=== PATIENT | male | born 1980 | race Caucasian/White ===

== ENCOUNTER 2017-07-24 15:44 | Emergency (ER) | payer BC ==
[~2017-07-24 15:44] MED LIST: IBUP600 PO; LEVE750T8 PO; METH750T2 PO
[2017-07-24 15:53] VITALS: BP 132/82; PULSE 115; RESP 18; TEMP 99.2; O2SAT 98
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
[2017-07-24] MEDS ORDERED: LIDOCAINE 1%/EPINEPHrine 1:100,000 SOLN 20 ML VIAL INFIL ONE (16:15)
[2017-07-24] MEDS ORDERED: CEPH-460 PO (16:41)
[2017-07-24] MEDS ORDERED: BACT800T5 PO (16:41)
[2017-07-24] MEDS ORDERED: CEPHALEXIN MONOHYDRATE 500 MG CAP PO ONE (16:45)
[2017-07-24] MEDS ORDERED: SULFAMETHOXAZOLE-TRIMETHOPRIM DS 800-160 MG TAB PO ONE (16:45)
== END 2017-07-24 17:04 | disposition home or self-care (01) ==
LOC: NEPK 15:44
DX: L02.413 Cutaneous abscess of right upper limb (principal); B95.61 Methicillin susceptible Staphylococcus aureus infection as the cause of diseases classified elsewhere; F17.200 Nicotine dependence, unspecified, uncomplicated
CPT/HCPCS: 10060; 86403; 87070; 87186; 87205

== ENCOUNTER 2017-07-26 20:04 | Emergency (ER) | payer BC ==
[~2017-07-26] VITALS: Ht 177.8 cm; Wt 70.0 kg
[~2017-07-26 20:04] MED LIST changes: +BACT800T5 PO; +CEPH-460 PO; -IBUP600 PO; -LEVE750T8 PO; -METH750T2 PO
[2017-07-26 20:29] VITALS: BP 130/92; PULSE 119; RESP 18; TEMP 98.2; O2SAT 99
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
== END 2017-07-26 21:20 | disposition home or self-care (01) ==
LOC: NEPD 20:04
DX: L02.413 Cutaneous abscess of right upper limb (principal); Z09 Encounter for follow-up examination after completed treatment for conditions other than malignant neoplasm; F17.210 Nicotine dependence, cigarettes, uncomplicated
CPT/HCPCS: 99281

== ENCOUNTER 2017-08-24 21:58 | Emergency (ER) | payer BC ==
[~2017-08-24] VITALS: Ht 177.8 cm; Wt 68.0 kg
[2017-08-24 22:12] VITALS: BP 136/84; PULSE 138; RESP 16; O2SAT 94
[2017-08-24] MEDS ORDERED: LORazepam 2 MG/ML VIAL IV PUSH ONE (22:15)
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
[2017-08-24 22:44] LABS: AUTOMATED NEUTROPHIL # 11.7 TH/MM3 (1.8-7.7); BASOPHIL # 0.1 TH/MM3 (0-0.2); BASOPHIL % 0.7 % (0.0-2.0); EOSINOPHIL # 0.1 TH/MM3 (0-0.4); EOSINOPHIL % 0.7 % (0.0-4.0); HEMOGLOBIN 13.8 GM/DL (13.0-17.0); LYMPH % 11.8 % (9.0-44.0); LYMPHOCYTE # 1.7 TH/MM3 (1.0-4.8); MEAN CELL VOLUME 89.8 FL (80.0-100.0); MEAN CORPUSCULAR HEMOGLOBIN 30.3 PG (27.0-34.0); MEAN CORPUSCULAR HGB CONC 33.7 % (32.0-36.0); MEAN PLATELET VOLUME 7.9 FL (7.0-11.0); MONOCYTE # 1.2 TH/MM3 (0-0.9); NEUT % 78.8 % (16.0-70.0); PLATELET COUNT 241 TH/MM3 (150-450); RED BLOOD COUNT 4.57 MIL/MM3 (4.50-5.90); RED CELL DISTRIBUTION WIDTH 15.2 % (11.6-17.2); WHITE BLOOD COUNT 14.8 TH/MM3 (4.0-11.0)
[2017-08-24 23:00] VITALS: BP 155/72; PULSE 104; RESP 12; O2SAT 98
[2017-08-24] MEDS ORDERED: SODIUM CHLOR 0.9% 1000 ML INJ 1,000 ML IV ONE (23:00)
[2017-08-24] MEDS ORDERED: NALOXONE HCL 0.4 MG/ML AMP IV PUSH PRN ×2 (23:00→23:15)
[2017-08-24] MEDS ORDERED: TETANUS/DIPHTHERIA TOXOID ADULT 0.5 ML VIAL IM ONE (23:00)
[2017-08-24 23:01] LABS: ALBUMIN 4.3 GM/DL (3.4-5.0); AST (GOT) 29 U/L (15-37); BLOOD UREA NITROGEN 17 MG/DL (7-18); CALCIUM 8.7 MG/DL (8.5-10.1); CHLORIDE 107 MEQ/L (98-107); CREATININE 1.34 MG/DL (0.60-1.30); GLOMERULAR FILTRATION RATE 61 ML/MIN (>89); GLUCOSE,RANDOM 169 MG/DL (74-106); SODIUM (NA) 142 MEQ/L (136-145)
[2017-08-24 23:03] LABS: ALT (GPT) 55 U/L (12-78)
[2017-08-24 23:06] LABS: ALKALINE PHOSPHATASE 90 U/L (45-117); TOTAL BILIRUBIN ADULT 0.4 MG/DL (0.2-1.0); TOTAL PROTEIN 7.6 GM/DL (6.4-8.2); TROPONIN I LESS THAN 0.02 NG/ML (0.02-0.05)
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
[2017-08-25 00:02] VITALS: BP 128/72; PULSE 104; RESP 14; O2SAT 97
[2017-08-25] MEDS ORDERED: NALOXONE HCL 0.4 MG/ML AMP IV PUSH PRN (00:45)
[2017-08-25 01:00] VITALS: BP 135/83; PULSE 96; RESP 12; O2SAT 99
[2017-08-25] MEDS ORDERED: SODIUM CHLOR 0.9% 1000 ML INJ 1,000 ML IV ONE (02:15)
[2017-08-25 03:12] VITALS: BP 133/78; PULSE 92; RESP 14; O2SAT 100
[2017-08-25] MEDS ORDERED: BACITRACIN/POLYMYXIN B OINT 0.9 GM PACKET TOPICAL ONE (05:15)
[2017-08-25] MEDS ORDERED: BACI500O9 TOPICAL (05:15)
[2017-08-25 05:20] VITALS: BP 131/79; PULSE 96; RESP 18; TEMP 98.4; O2SAT 98
--- NOTE | 2017-08-25 10:29 | EKG ---
Date Performed: 08/24/2017 Time Performed: 22:45:15 PTAGE: 37 years EKG: SINUS TACHYCARDIA NONSPECIFIC ST & T-WAVE ABNORMALITY ABNORMAL RHYTHM ECG PREVIOUS TRACING : 07/22/2014 07.35 Compared to the prior study, nonspecific ST-T wave changes are new. DOCTOR: Koko Martinez Interpretating Date/Time 08/25/2017 10:29:13
== END 2017-08-25 06:10 | disposition home or self-care (01) ==
LOC: NEPC 21:58
DX: T40.1X1A Poisoning by heroin, accidental (unintentional), initial encounter (principal); T40.5X1A Poisoning by cocaine, accidental (unintentional), initial encounter; S09.90XA Unspecified injury of head, initial encounter; R55 Syncope and collapse; R00.0 Tachycardia, unspecified; R94.31 Abnormal electrocardiogram [ECG] [EKG]; F17.200 Nicotine dependence, unspecified, uncomplicated; W17.89XA Other fall from one level to another, initial encounter; Z23 Encounter for immunization
CPT/HCPCS: 70450; 80053; 84484; 85025; 90471; 90714; 93005; 96361; 96374; 96375; 99285; J2060; J2310; J7030